=== PATIENT | female | born 2000 | race Caucasian/White ===

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

== ENCOUNTER 2019-04-23 20:57 | Emergency (ER) | payer MEDICAID ==
[~2019-04-23] VITALS: Ht 162.6 cm; Wt 81.6 kg
--- NOTE | 2019-04-23 21:19 | ED Cough/URI ---
General Chief Complaint: Cough/Cold/Flu Symptoms Stated Complaint: COUGH/CONGESTION/CP Source: patient Exam Limitations: no limitations History of Present Illness Date Seen by Provider: Apr 23, 2019 Time Seen by Provider: 21:17 Initial Comments To ER with a few day history of chest pain with breathing, cough that is occasionally productive, wheezing. 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 No fevers. History of asthma as a child, nothing since then. Timing/Duration: just prior to arrival, constant Severity/Quality: productive cough Associated Symptoms: cough, shortness of breath Allergies and Home Medications Allergies Coded Allergies: No Known Drug Allergies (Unverified , 02/08/18) Home Medications Fluconazole 150 Mg Tablet, 150 MG PO UD 1 tab po q3d x4 doses Prescribed by: JACKIE CANO on 02/08/18 1406 Nitrofurantoin Monohyd/M-Cryst 100 Mg Capsule, 1 TAB PO BID Prescribed by: JACKIE CANO on 02/08/18 140 Phenazopyridine HCl 200 Mg Tablet, 1 TAB PO Q8H PRN for pain Prescribed by: JACKIE CANO on 02/08/18 1406 Patient Home Medication List Home Medication List Reviewed: Yes Review of Systems Review of Systems Constitutional: see HPI EENTM: see HPI Respiratory: see HPI, cough, wheezing Cardiovascular: no symptoms reported Genitourinary: no symptoms reported Musculoskeletal: no symptoms reported Skin: no symptoms reported Psychiatric/Neurological: No Symptoms Reported Hematologic/Lymphatic: No Symptoms Reported Past Wuhwcjc-Woddpd-Haedyy Hx Patient Social History Recent Foreign Travel: No Contact w/Someone Who Travel: No Recent Hopitalizations: No Immunizations Up To Date Tetanus Booster (TDap): Unknown PED Vaccines UTD: Yes Seasonal Allergies Seasonal Allergies: No Past Medical History Surgeries: Yes Lobectomy Respiratory: Yes (RLL REMOVED) Asthma Cardiac: No Neurological: No Genitourinary: No Gastrointestinal: No Musculoskeletal: No Endocrine: No HEENT: No Cancer: No Psychosocial: No Integumentary: No Blood Disorders: No Family Medical History No Pertinent Family Hx Physical Exam Vital Signs - First Documented 04/23/19 21:01 Temp 97.9 Pulse 100 Resp 18 B/P (MAP) 131/57 Capillary Refill : Height: 5'4.00" Weight: 180lbs. oz. 81.696273uf; 28.12 BMI Method:Stated General Appearance: WD/WN, no apparent distress Eyes: Bilateral Eye Normal Inspection, Bilateral Eye PERRL, Bilateral Eye EOMI HEENT: PERRL/EOMI, normal ENT inspection Respiratory: no respiratory distress, no accessory muscle use, wheezing (diffusely wheezy) Gastrointestinal: normal bowel sounds, non tender, soft Neurologic/Psychiatric: alert, normal mood/affect, oriented x 3 Skin: normal color, warm/dry Progress/Results/Core Measures Suspected Sepsis SIRS Temperature: Pulse: Respiratory Rate: Blood Pressure / Mean: Results/Orders My Orders Orders - MICHELLE LEIVA APRN Chest 1 View, Ap/Pa Only (04/23/19 21:16) Albuterol/Ipra Inhalation Soln (Duoneb I (04/23/19 21:30) Svn Small Volume Nebulizer (04/23/19 21:16) Albuterol Pre-Mix Nebs (Rt) (Proventil (04/23/19 22:00) Svn Small Volume Nebulizer (04/23/19 21:53) Azithromycin Tablet (Zithromax Tablet) (04/23/19 22:00) Prednisone Tablet (Deltasone Tablet) (04/23/19 22:00) Medications Given in ED Current Medications Medications Dose Ordered Sig/Gabriele Route Start Time Stop Time Status Last Admin Dose Admin Albuterol/ Ipratropium 3 ml ONCE ONCE INH 04/23/19 21:30 04/23/19 21:31 DC 04/23/19 21:34 3 ML Vital Signs/I&O 04/23/19 21:01 Temp 97.9 Pulse 100 Resp 18 B/P (MAP) 131/57 Capillary Refill : Departure Impression Primary Impression: Bronchitis Disposition: HOME, SELF-CARE Condition: Stable Departure-Patient Inst. Decision time for Depature: 21:49 Referrals: NO,LOCAL PHYSICIAN (PCP/Family) Primary Care Physician Patient Instructions: Acute Bronchitis Add. Discharge Instructions: 1. Follow-up with your doctor next week 2. All discharge instructions reviewed with patient and/or family. Voiced understanding. Scripts Azithromycin (Azithromycin) 250 Mg Tablet 250 MG PO DAILY, #4 TAB 0 Refills Prov: MICHELLE LEIVA APRN 04/23/19 Work/School Note: Work Release Form Date Seen in the Emergency Department: Apr 23, 2019 Return to Work: Apr 25, 2019 MICHELLE LEIVA APRN Apr 23, 2019 21:19
[2019-04-23] MEDS ORDERED: RT-ALBUTEROL/IPRATROPIUM 3 ML (DUONEB) VIAL INH ONE (21:30)
--- NOTE | 2019-04-23 21:47 | Diagnostic Imaging Report ---
INDICATION: Cough and cold symptoms Upright chest shows normal heart size and vascularity. The lungs are clear. There is no effusion or pneumothorax. There is no bony abnormality. IMPRESSION: Normal chest. Dictated by: Dictated on workstation # [id number]
[2019-04-23] MEDS ORDERED: RX-ALBUTEROL INHALER (PROAIR) 8.5 GM IH STA (21:55)
[2019-04-23] MEDS ORDERED: AZIT250T12 PO (21:56)
[2019-04-23] MEDS ORDERED: predniSONE 20 MG TAB PO ONE (22:00)
[2019-04-23] MEDS ORDERED: AZITHROMYCIN 250 MG TAB (ZITHROMAX) PO SCH ×2 (22:00→22:15)
[2019-04-23] MEDS ORDERED: RT-ALBUTEROL SULF 2.5 MG/3 ML PRE-MIX VIAL INH ONE (22:00)
== END 2019-04-23 22:11 | disposition home or self-care (01) ==
LOC: EDUNIT# 20:57 → ER 20:58
DX: J45.909 Unspecified asthma, uncomplicated (principal)
CPT/HCPCS: 71045; 96374